=== PATIENT | male | born 1995 | race Caucasian/White ===

== ENCOUNTER 2017-03-24 01:24 | Emergency (ER) | payer OTHER ==
[~2017-03-24] VITALS: Ht 167.6 cm; Wt 76.4 kg
[2017-03-24 01:27] VITALS: TEMP 36.5; Ht 167.6 cm; Wt 76.4 kg
[2017-03-24] MEDS ORDERED: EZET10TA47 PO (01:42)
[2017-03-24] MEDS ORDERED: XYLOCAINE 1%/SOD BICARB 20 ML VIAL INFIL ONE (01:45)
--- NOTE | 2017-03-24 02:11 | EMERGENCY ROOM VISIT NOTE ---
History Report prepared by Jeanne: Adelia Deutsch Under the Supervision of: Dr. Raji Ramirez M.D. First contact with patient: 01:33 Chief Complaint: HAND PAIN/INJURY Stated Complaint: SLAMMED HAND IN DOOR AND IS CUT History of Present Illness The patient is a 21 year old male who presents to the Emergency Room with complaints of persistent right hand pain starting [employer]. He slammed his right hand in a house door. He reports having a cut which is bleeding to his index finger. He denies any other cuts or injury. He admits to alcohol use today. His tetanus is up to date. Source of History: patient Onset: [employer] Position: hand (right) Quality: other (pain) Timing: other (persistent) Note: Pt reports bleeding from finger. Pt denies other injury. Review of Systems See HPI for pertinent positives & negatives. A total of 6 systems reviewed and were otherwise negative. Past Medical & Surgical Medical Problems: (1) No significant medical problems Family History No pertinent family history stated. Social History Smoking Status: Never Smoker Occupation Status: [employer] student Current/Historical Medications Scheduled Cephalexin Monohydrate (Keflex), 1 CAP PO TID Ezetimibe (Zetia), 10 MG PO DAILY Allergies Coded Allergies: No Known Allergies (Unverified , 03/24/17) Physical Exam Vital Signs Date Time Temp Pulse Resp B/P (MAP) Pulse Ox O2 Delivery O2 Flow Rate FiO2 03/24/17 02:18 60 16 146/72 96 03/24/17 01:27 36.5 59 18 132/75 96 Room Air Physical Exam GENERAL: Patient is well appearing, intoxicated, and in no acute distress. HEENT: No acute trauma, normocephalic atraumatic, mucous membranes moist, no nasal congestion, no scleral icterus. NECK: No stridor, no adenopathy, no meningismus, trachea is midline. EXTREMITIES: Normal motion all extremities, no cyanosis, no edema. 1.5 cm palmar DIP laceration, mild venous oozing, neurovascularly intact. NEUROLOGIC: Alert and oriented, no acute motor or sensory deficits, no focal weakness, cranial nerves grossly intact. SKIN: No rash, no jaundice, no diaphoresis. Hickey over the right neck. Medical Decision & Procedures ER Provider Diagnostic Interpretation: X ray results are stated below per my interpretation: 2nd digit right hand: 3 view: No fracture, no dislocation, small amount of soft tissue swelling. Medications Administered Medications (Trade) Dose Ordered Sig/Carlos Route Start Time Stop Time Status Last Admin Dose Admin Lidocaine HCl (Buffered Lidocaine 1% Inj) 20 ml NOW ONCE INFIL 03/24/17 01:45 03/24/17 01:46 DC 03/24/17 01:45 20 ML Cephalexin Monohydrate (Keflex Cap) 500 mg NOW ONCE PO 03/24/17 02:15 03/24/17 02:16 DC 03/24/17 02:18 500 MG Procedure Location: right 2nd digit over DIP palmar Total length: 1.5 cm Complexity: simple Verbal consent was obtained after the risks and benefits were explained, including but not limited to bleeding, scarring, infection, pain, and bone/joint /nerve damage. At this time, the risks of the procedure are less than the risks of NOT performing the procedure. A time out was taken and the correct patient and site identified. The skin was prepped with betadine. The target area was anesthetized with 1 ml of 1% lidocaine without epinephrine. Copious irrigation was performed using NSS. The skin was re-prepped with betadine and a sterile field set. The wound was explored for foreign bodies and none found. Examination revealed no injury to deep structures such as tendons, bone, or significant blood vessels. Debridement was not performed. The wound edges were approximated using 5, 5-0 simple interrupted nylon sutures. Hemostasis and excellent approximation was achieved. Antibacterial ointment and a sterile dressing applied. Detailed wound care instructions and signs and symptoms of infection reviewed with the patient. No complications and the patient tolerated the procedure well. ED Course 0133: The patient was evaluated in room B5. A complete history and physical exam was performed. 0145: Lidocaine HCl 20 ml INFIL. 0155: I repaired the laceration according to the procedure note above. I discussed results and discharge instructions: he verbalized understanding and agreement. The patient is ready for discharge. 0215: Keflex Cap 500 mg PO. Medical Decision 21 yr old male with laceration crush injury in door to right hand (dominant) 2nd palmar DIP (horizontal). Does not enter joint and no fracture on imaging. Distal NV intact. Tetanus UTD. Sutured with good closure. Given crush injury and over joint felt abx reasonable. Discussed wound care and symptoms to monitor for. Medication Reconcilliation Current Medication List: was personally reviewed by me Blood Pressure Screening Patient's blood pressure: Normal blood pressure Blood pressure disposition: Did not require urgent referral Impression Primary Impression: Finger laceration Additional Impression: Crushed finger Scribe Attestation The scribe's documentation has been prepared under my direction and personally reviewed by me in its entirety. I confirm that the note above accurately reflects all work, treatment, procedures, and medical decision making performed by me. Departure Information Dispostion Home / Self-Care Prescriptions Cephalexin Monohydrate (Keflex) 500 Mg Cap 1 CAP PO TID for 5 Days, #15 CAP Prov: Raji Ramirez M.D. 03/24/17 Referrals No Doctor, Assigned (PCP) Patient Instructions ED Laceration Ext Sutr Stap Tape, [facility] Additional Instructions Sutures should be removed in 7 to 10 days. Problem Qualifiers
[2017-03-24] MEDS ORDERED: CEPH500C PO (02:12)
[2017-03-24] MEDS ORDERED: CEPHALEXIN MONOHYDRATE 250 MG CAP PO ONE (02:15)
[2017-03-24 02:18] VITALS: BP 146/72; PULSE 60; O2SAT 96
--- NOTE | 2017-03-24 06:36 | DIAGNOSTIC IMAGING REPORT ---
R FINGER(S) MIN 2 VIEWS ROUTINE CLINICAL HISTORY: 21 years-old Male presenting with right pointer finger, slammed in car door. TECHNIQUE: Frontal, oblique, and lateral views of the right second finger were obtained. COMPARISON: None. FINDINGS: No acute fracture or malalignment. Possible soft tissue defect along the radial aspect of the second finger at the level of the distal interphalangeal joint. No subjacent osseous injury. IMPRESSION: No acute osseous injury of the right second finger. Electronically signed by: Natanael Kumari M.D. 03/24/2017 6:35 AM Dictated Date/Time: 03/24/2017 6:33 AM
== END 2017-03-24 02:25 | disposition home or self-care (01) ==
LOC: C.EDB 01:25
DX: S61.210A Laceration without foreign body of right index finger without damage to nail, initial encounter (principal); S67.190A Crushing injury of right index finger, initial encounter; V48.4XXA Person boarding or alighting a car injured in noncollision transport accident, initial encounter